=== PATIENT | female | born 1985 | race Hispanic/Latino ===

== ENCOUNTER 2024-09-20 18:03 | Emergency (ER) | payer SELFPAY ==
[~2024-09-20] VITALS: Ht 162.6 cm; Wt 65.8 kg
[2024-09-20 18:28] LABS: BASOPHILS % 1.4 % (0.0-1.0); EOSINOPHILS % 1.7 % (0.0-6.0); LYMPHOCYTES % 29.5 % (18.0-39.1); MONOCYTES % 8.7 % (4.4-11.3); NEUTROPHILS % 58.4 % (38.7-80.0); RED CELL DISTRIBUTION WIDTH 13.4 % (11.7-14.4)
[2024-09-20] MEDS: LORAZEPAM INJ 2 MG/ML VIAL IV ONE (18:36)
[2024-09-20 18:49] LABS: EST GLOMERULAR FILTRATION RATE 99.0 ML/MIN (>=60)
[2024-09-20 19:04] LABS: LEUKOCYTE ESTERASE ,URINE NEGATIVE (NEGATIVE); PROTEIN,URINE DIPSTICK NEGATIVE (NEGATIVE); URINE UROBILINOGEN 0.2 mg/dL (0.2 - 1)
[2024-09-20 19:07] LABS: EPITHELIAL CELLS,URINE MANY /LPF; WBC,URINE (MAN) 0-5 /HPF (0-5)
[2024-09-20] MEDS ORDERED: VIMPAT200 MG PO (20:00)
[2024-09-20 20:01] VITALS: PULSE 75; RESP 18; TEMP 98.3; O2SAT 100
== END 2024-09-20 20:15 | disposition home or self-care (01) ==
LOC: EDBD 18:03 → ER 18:09
DX: G40.909 Epilepsy, unspecified, not intractable, without status epilepticus (principal)
CPT/HCPCS: 36415; 80053; 80156; 81001; 84702; 85025; 93005; 99284; J2060